=== PATIENT | male | born 1995 | race Caucasian/White ===

== ENCOUNTER 2018-11-23 08:57 | Emergency (ER) | payer BC, SELFPAY ==
[2018-11-23 08:58] VITALS: BP 131/87; PULSE 64; RESP 18; TEMP 36.6; O2SAT 100; BMI 30.8
--- NOTE | 2018-11-23 09:29 | ED.VISSUMM ---
- ER Visit Summary Date of Service: 11/23/18 Chief Complaint: Fatigue History of Present Illness: The patient is a 23 M your prior brain tumor with resection. He has a shunt. He states for 2 days fell and has had fatigue. He denies nausea or vomiting. Today he has had some mild diarrhea. He denies any headaches. No neurological symptoms. Had an episode like this 1 other time where he was placed on antidepressants which he states he did not take faithfully and his symptoms went away. Physical Examination: Well-appearing young male. Vital signs are stable and afebrile. No acute distress. HEENT exam unremarkable. Dry reactive light. No facial droop. Normal speech. Moist mucous membranes. Neck nontender no lymphadenopathy. Lungs clear to auscultation bilaterally. Heart regular rhythm no murmur. Abdomen is soft and no peritoneal signs. Patient is moving all 4 extremities. Neurovascular intact. He has 5 out of 5 x ray technologist strength. Dorsi plantar flexion intact. Back exam normal. Skin unremarkable. Neurologically is awake and alert with no focal motor or sensory deficits. NIH score is 0. Fingertip to nose and heel to chaudhari are both within normal limits. Test Results: CBC is normal. White count of 5. Hemoglobin 15. BMP is normal also. Normal glucose. Electrolytes. And creatinine. Emergency Department Course and Treatment: Patient is complaining of fatigue is a completely normal exam. This may be underlying anxiety or even depression. We will check screening labs to rule out a biologic cause. Treatment Plan: 10:20 AM. Discharged home. Follow-up with a primary care physician. Disposition: discharge Impression: Fatigue of uncertain etiology This note was generated with [employer] dictation software. It may contain incorrect words, spelling, and punctuation that were not noted in review of the chart prior to signing ED Disposition - Plan for ED Patient: Referrals: Care Physician,No Primary [Primary Care Provider] -
--- NOTE | 2018-11-23 09:32 | ED.DCSUM_ITS ---
- ER Visit Summary Date of Service: 11/23/18 Chief Complaint: Fatigue History of Present Illness: The patient is a 23 M your prior brain tumor with resection. He has a shunt. He states for 2 days fell and has had fatigue. He denies nausea or vomiting. Today he has had some mild diarrhea. He denies any headaches. No neurological symptoms. Had an episode like this 1 other time where he was placed on antidepressants which he states he did not take faithfully and his symptoms went away. Physical Examination: Well-appearing young male. Vital signs are stable and afebrile. No acute distress. HEENT exam unremarkable. Dry reactive light. No facial droop. Normal speech. Moist mucous membranes. Neck nontender no lymphadenopathy. Lungs clear to auscultation bilaterally. Heart regular rhythm no murmur. Abdomen is soft and no peritoneal signs. Patient is moving all 4 extremities. Neurovascular intact. He has 5 out of 5 residential caregiver strength. Dorsi plantar flexion intact. Back exam normal. Skin unremarkable. Neurologically is awake and alert with no focal motor or sensory deficits. NIH score is 0. Fingertip to nose and heel to chaudhari are both within normal limits. Test Results: CBC is normal. White count of 5. Hemoglobin 15. BMP is normal also. Normal glucose. Electrolytes. And creatinine. Emergency Department Course and Treatment: Patient is complaining of fatigue is a completely normal exam. This may be underlying anxiety or even depression. We will check screening labs to rule out a biologic cause. Treatment Plan: 10:20 AM. Discharged home. Follow-up with a primary care physician. Disposition: discharge Impression: Fatigue of uncertain etiology This note was generated with [employer] dictation software. It may contain incorrect words, spelling, and punctuation that were not noted in review of the chart prior to signing ED Disposition - Plan for ED Patient: Referrals: Care Physician,No Primary [Primary Care Provider] -
[2018-11-23 09:58] LABS: Absolute Lymphocyte Count 1.11 X10^3/ul (0.83-4.51); Absolute Neutrophil Count 3.5 X10^3/uL (2.0-7.7); Basophil# 0.01 X10^3/uL; Basophil% 0.2 % (0-1); Eosinophil# 0.19 X10^3/uL; Eosinophils% 3.7 % (0-5); Hematocrit 45.2 % (40-54); Hemoglobin 15.5 g/dl (13.0-16.5); Lymphocyte # 1.11 X10^3/ul (4.0); Lymphocyte % 21.5 % (19-41); Mean Corp Hgb Conc 34.3 g/gl (32-36); Mean Corpuscular Hgb 31.3 pg (27.0-32.0); Mean Corpuscular Volume 91.1 fL (80-94); Mean Platelet Vol. 10.2 fl (6.2-12.0); Monocyte# 0.31 X10^3/uL; Neutrophil # 3.53 X10^3/uL (2.7-7.7); Neutrophil % 68.4 % (47-70); POSITIVE COUNT NO; POSITIVE DIFFERENTIAL NO; POSITIVE MORPHOLOGY NO; Platelet Count 197 K/mm3 (150-450); RBC Distribution Width SD 39.6 fl (35.1-43.9); Red Blood Count 4.96 M/mm3 (4.6-6.2); White Blood Count 5.2 K/mm3 (4.4-11.0)
[2018-11-23 10:07] LABS: BUN 11 mg/dL (7-18); BUN/Creat Ratio 12.4 RATIO (10-20); Calcium,Total 8.5 mg/dL (8.5-10.1); Creatinine, Serum 0.88 mg/dL (0.70-1.30); EST Glomerular Filtration Rate 111 mL/min (>60); Est Glom Filt Rate - Afr Amer 135 mL/min (>60); Glucose 95 mg/dL (74-106)
[2018-11-23 10:08] LABS: Anion Gap 5 (5-15); Chloride 109 mmol/L (98-107); Potassium 4.1 mmol/L (3.5-5.1); Sodium Level 141 mmol/L (136-145)
--- NOTE | 2018-11-23 10:21 | ED.DEP ---
ED Disposition - Plan for ED Patient: Disposition: Home or Assisted Living Instructions: ED Weakness [facility] Referrals: Edmond Sewell MD [STAFF PHYSICIAN] - 1 Week if not improving Additional Instructions: Fluids and rest. Review not improved position.
[2018-11-23 10:27] VITALS: BP 130/83; PULSE 57; RESP 16
== END 2018-11-23 10:28 | disposition home or self-care (01) ==
PROVIDERS: Emergency Provider Emergency Medicine
DX: R53.83 Other fatigue (principal); R19.7 Diarrhea, unspecified; Z98.2 Presence of cerebrospinal fluid drainage device
CPT/HCPCS: 80048; 85025; 99283

== ENCOUNTER 2020-01-17 19:29 | Emergency (ER) | payer BC, SELFPAY ==
[2020-01-17 19:32] VITALS: BP 134/92; PULSE 87; PULSE 88; RESP 16; RESP 18; TEMP 36.8; O2SAT 95; O2SAT 96; BMI 32.6
--- NOTE | 2020-01-17 20:01 | US_ITS ---
STUDY: SCROTUM ULTRASOUND REASON FOR EXAM: Male, 24 years old. TESTICLE PAIN LT and gt; RT JUST TODAY NO SWELLING TECHNIQUE: Ultrasound evaluation of the scrotum was performed with color Doppler and static schmitz-scale imaging. COMPARISON: None. FINDINGS: RIGHT TESTICLE INTRATESTICULAR: Right testicle is mildly enlarged. The right testicle measures 5.2 x 3.4 x 2.7 cm. There is a homogenous echotexture. There is normal arterial and normal venous vascularity. There is no demonstrated right testicular mass or cyst. EXTRATESTICULAR: The epididymis is normal in size. The epididymis head measures 1.3 x 1.2 x 0.9 cm. There is normal vascularity of the epididymis. There is no demonstrated epididymal cystic structure. There is no demonstrated hydrocele. There is no demonstrated varicocele. There is no demonstrated extratesticular mass or cyst. LEFT TESTICLE INTRATESTICULAR: There is a normal size of the left testicle. The left testicle measures 5 x 3.4 x 2.3 cm. There is a homogenous echotexture. There is normal arterial and normal venous vascularity. There is no demonstrated left testicular mass or cyst. EXTRATESTICULAR: The epididymis is normal in size. The epididymis head measures 0.9 x 0.8 x 0.6 cm. There is normal vascularity of the epididymis. There is no demonstrated epididymal cystic structure. There is a small hydrocele. There is no demonstrated varicocele. There is no demonstrated extratesticular mass or cyst. US/Testicular with Arterial Flow IMPRESSION: No evidence for testicular mass or torsion. Small left hydrocele Electronically Signed: Alec Hercules MD at 20:52 EDT , Service support ,
[2020-01-17] MEDS: Ibuprofen 600 MG Tablet PO (20:08)
[2020-01-17 20:14] LABS: Bacteria 0 SEEN /hpf (None Seen); Mucous, Urine 0 SEEN /hpf (<or=2+); Squamous Epithelial Cells - UA 0 SEEN /hpf (0-5); White Blood Cells 0 SEEN /hpf (0-5)
[2020-01-17 20:34] LABS: Color, Urine Yellow (Yellow); Glucose, Dipstick Normal (Normal); Ketone-Dipstick Negative (Negative); Leukocyte Esterase-Dipstick Negative /ul (Negative); Nitrite-Dipstick Negative (Negative); Occult Blood-Urine 10 /ul (Negative); Protein-Dipstick Negative (Negative); Specific Gravity, Urine 1.025 (1.002-1.030); Urine Bilirubin Dipstick Negative (Negative); Urine Clarity Clear (Clear); Urine Urobilinogen Normal (Normal)
[2020-01-17 20:48] LABS: Red Blood Cells-Urine 0-5 SEEN /hpf (0-5)
--- NOTE | 2020-01-17 20:51 | ED.DCSUM_ITS ---
History of Present Illness Chief Complaint: Male Pain/Injury Informant: Patient Onset: Today Context: Sudden Onset Timing: Waxes and wanes Narrative: Patient is a 24-year-old male with no significant past medical history presenting with testicular pain. Patient states it started about 2 hours prior to arrival. The right is slightly worse than the left. Patient states he has had it before but is never been this severe. Last time was a couple weeks ago. Patient states he put ice on his genitalia which seemed to help his symptoms. He denies any associated dysuria. He denies any penile discharge. Denies any r alva. He is not concern for sexually transmitted infections and sent a monogamous relationship. He denies any pain with defecation. Past Medical History - Allergies and Home Meds Allergies/Adverse Reactions: Allergies No Known Allergies Allergy (Verified 01/17/20 19:31) Primary Care Physician: Edmond Sewell MD [Primary Care Provider] - Past Medical History: None Surgical History: noncontributory Smoking Status: Never smoker Review of Systems General: Denies: Chills, Fever, Sweats Eyes: Denies: Visual changes - bilaterally, Diplopia ENT: Denies: Rhinorrhea, Sore throat Cardiovascular: Denies: Chest pain, Palpitations Respiratory: Denies: Dyspnea, Cough, Dyspnea on exertion Gastrointestinal: Denies: Abdominal pain, Nausea, Vomiting, Diarrhea, Melena, Hematochezia Genitourinary: Reports: - - Testicular pain. Denies: Dysuria, Hematuria, Frequency Musculoskeletal: Denies: Back pain, Extremity Pain Skin: Denies: Rash, Wounds Neurological: Denies: Headache, Weakness, Numbness Physical Exam Vital Signs/Narrative: Vital Signs Temp Pulse Resp BP Pulse Ox 01/17/20 19:32 98.2 F 87 18 134/92 H 96 Inital Vital Signs reviewed: Yes General: Well nourished, Well developed, No Acute Distress Head: Normocephalic, Atraumatic Eyes: Perrl, EOMI ENT: Moist mucous membranes, No rhinorrhea Neck: Supple, Nontender Cardiovascular: Regular rate, Regular rhythm, No murmurs Respiratory: No distress, CTA bilaterally, Chest nontender Abdomen: Soft, Nontender, Nondistended, Normal bowel sounds. Negative for: Guarding, Rebound tenderness : - - Normal cremasteric reflex bilaterally, normal testicular lie, no specific tenderness to palpation of the testicles, no hernia palpated. Normal penis with no urethral meatus discharge. Back: Nontender, Normal Inspection. Negative for: CVA tenderness Extremities: Nontender, No edema Skin: Normal color, No rash Neurological: Alert, Oriented x3, Cranial nerves II-XII grossly intact, Normal Strength, Normal Sensation Psychological: Normal affect, Normal Mood Diagnostic/Tx/Re-eval Clinical Impression(s) from Imaging Studies Testicular Ultrasound 01/17/20 20:01 IMPRESSION: No evidence for testicular mass or torsion. Small left hydrocele Electronically Signed: Alec Hercules MD at 20:52 EDT , Service support , Laboratory Data 01/17/20 20:05 Urine Color Yellow Urine Clarity Clear Urine pH 6.0 Ur Specific Cameron 1.025 Urine Protein Negative Urine Glucose (UA) Normal Urine Ketones Negative Urine Occult Blood 10 H Urine Nitrite Negative Urine Bilirubin Negative Urine Urobilinogen Normal Ur Leukocyte Esterase Negative Urine RBC 0-5 SEEN Urine WBC 0 SEEN Ur Squamous Epith Cells 0 SEEN Urine Bacteria 0 SEEN Urine Mucus 0 SEEN - Medical Decision Making Patient is evaluated for testicular pain. He appears nontoxic in no acute distress. He not have any associated back pain or other findings concerning for kidney stone. Urinalysis does show 0-5 red blood cells was otherwise negative. No inflammatory changes. Ultrasound does not show any torsion or acute process. He does have a small left hydrocele. I do not think this is associated with his pain. Patient will be referred to urology for follow-up. He is given Motrin for pain control. He is counseled on the risk of an intermittent torsion and that if his pain suddenly returns and is severe he should return to the emergency room for repeat ultrasound. Patient is counseled on signs and symptoms requiring return to the emergency room. Patient verbalizes agreement and understand this plan. Patient discharged home in stable and improved condition. ED Disposition - Plan for ED Patient: Disposition: Home or Assisted Living Diagnosis: Testicular pain, unspecified Instructions: ED Testicular Pain [facility] Prescriptions: Ibuprofen [Motrin] 600 mg PO Q6H PRN PRN #20 tab PRN Reason: Pain/Inflammation Prescription Printed Referrals: Edmond Sewell MD [Primary Care Provider] - Lenny Clayton MD [STAFF PHYSICIAN] -
[2020-01-17 21:45] VITALS: BP 123/71; PULSE 71; RESP 17; O2SAT 95
== END 2020-01-17 21:45 | disposition home or self-care (01) ==
PROVIDERS: Emergency Provider Emergency Medicine; PCP Family Medicine
DX: N50.811 Right testicular pain (principal); N50.812 Left testicular pain; N43.3 Hydrocele, unspecified
CPT/HCPCS: 76870; 81001; 93976; 99283

== ENCOUNTER → 2020-03-13 | Outpatient (CLI) | payer BC, SELFPAY | END | disposition home or self-care (01) | LOC: LABSPEC 17:56 | PROVIDERS: PCP Family Medicine; Visit Provider Family Medicine | DX: Z31.41 Encounter for fertility testing (principal) ==

== ENCOUNTER 2020-03-16 07:11 | Emergency (ER) | payer BC, SELFPAY ==
[2020-03-16 07:11] VITALS: BP 149/109; PULSE 60; RESP 18; TEMP 36.6; O2SAT 98; BMI 33.3
--- NOTE | 2020-03-16 07:22 | CT_ITS ---
STUDY: CT BRAIN WITHOUT CONTRAST REASON FOR EXAM: Male, 24 years old. AMNESIA, HX BRAIN TUMOR, SHUNT RADIATION DOSAGE (If Supplied By Facility): CTDIvol = ( 44.99 ) mGy, DLP = ( 779.24 ) mGycm TECHNIQUE: Transaxial CT imaging of the brain was performed without administration of intravenous contrast material. Individualized dose optimization techniques were used for this CT. COMPARISON: No relevant priors. FINDINGS: A right-sided posterior shunt tube is seen with the tip in the left lateral ventricle. Prior craniotomy in the right occipital bone. Hyperostosis in the right parietal and occipital bones. There is a 2.7 cm x 5.5 cm x 3.9 cm CSF fluid collection in the right cerebellar hemisphere. The patient has a history of prior craniotomy in the surgery. This may represent postoperative changes. There is a mild degree of hydrocephalus for the patient''s age. Normal basal ganglia and thalami. Normal brainstem. Normal cerebellum. There is no intracranial hemorrhage. There are no findings of an acute ischemic infarction. Partial opacification of the ethmoid sinuses bilaterally as well as the right frontal sinus. CT/Brain/Head without Contrast IMPRESSION: The patient is status post craniotomy involving the right occipital bone with the CSF collection in the right cerebellar hemisphere most likely postoperative in nature. A right-sided ventricular shunt tube is seen with the tip in the left lateral ventricle. Hydrocephalus. Electronically Signed: Femi Hardy, at 8:50 EDT , Service support ,
--- NOTE | 2020-03-16 07:23 | ED.VISSUMM ---
- ER Visit Summary Date of Service: 03/16/20 Chief Complaint: [Not feeling well] History of Present Illness: The patient is a 24 M [presents to the emergency department with 3-day history of feeling like he is having an out of body experience. He has had some intermittent blurred vision. Today he states that he drove to work and then once he got to work did not remember driving to work. Patient states he has had similar episodes like this yearly since 2013. Patient had an episode last year and was seen in the ER for that. Today while at work he states that he broke into a cold sweat and was little bit nauseated and hands became numb and tingly. Patient has history of prior brain tumor that was resected when he was a young child and has a [employer] shunt. He is not had any fevers or recent illness. He denies headaches. Patient denies illicit drug use.] Physical Examination: [HEENT-PERRLA, EOMI. Cranial nerves II through XII grossly intact. TMs clear. Mucous membranes moist. No adenopathy. Cardiovascular-regular rate and rhythm without murmur or ectopy Lungs-clear to auscultation, chest wall stable without crepitus or subcu emphysema Abdomen-normoactive bowel sounds, soft, nontender, no rebound or rigidity, no peritoneal signs. Neuro [id number] and heel chaudhari testing within normal limits, negative Romberg, negative for drift, fundi benign Extremities-intact ?4, normal range of motion, normal pulses, atraumatic] Test Results: [CBC with differential was normal. Chemistries unremarkable. CT scan of the brain without contrast showed prior craniotomy with a fluid collection that was felt to be postsurgical and mild degree of hydrocephalus.] Emergency Department Course and Treatment: [] Treatment Plan: [Patient will be given a prescription for Ativan as needed for anxiety. I recommended that he follow-up with his primary care physician within next 3 to 5 days.] Disposition: [Discharged home in stable condition] Impression: [Stress reaction Amnesia] This note was generated with [employer] software. It may contain incorrect words, spelling, and punctuation that were not noted in review of the chart prior to signing ED Disposition - Plan for ED Patient: Referrals: Edmond Sewell MD [Primary Care Provider] -
[2020-03-16 08:08] LABS: Absolute Lymphocyte Count 1.03 X10^3/uL (0.83-4.51); Basophil# 0.02 X10^3/uL; Basophil% 0.5 % (0-1); Eosinophil# 0.12 X10^3/uL; Eosinophils% 2.7 % (0-5); Hematocrit 45.4 % (40-54); Hemoglobin 15.2 g/dL (13.0-16.5); Lymphocyte # 1.03 X10^3/ul (4.0); Lymphocyte % 23.3 % (19-41); Mean Corp Hgb Conc 33.5 g/dL (32-36); Mean Corpuscular Hgb 30.6 pg (27.0-32.0); Mean Corpuscular Volume 91.5 fL (80-94); Mean Platelet Vol. 9.8 fl (6.2-12.0); Monocyte# 0.23 X10^3/uL; Monocyte% 5.2 % (0-10); NRBC Flagged by Analyzer 0 % (0-5); Neutrophil # 3.01 X10^3/uL (2.7-7.7); Neutrophil % 68.1 % (47-70); Platelet Count 209 K/mm3 (150-450); RBC Distribution Width CV 11.9 % (11.6-14.6); RBC Distribution Width SD 39.2 fl (35.1-43.9); Red Blood Count 4.96 M/mm3 (4.6-6.2); White Blood Count 4.4 K/mm3 (4.4-11.0)
[2020-03-16 08:12] VITALS: BMI 33.3
[2020-03-16 08:26] LABS: Anion Gap 7 (5-15); BUN 16 mg/dL (7-18); BUN/Creat Ratio 15.5 RATIO (10-20); Chloride 108 mmol/L (98-107); Creatinine, Serum 1.03 mg/dL (0.70-1.30); EST Glomerular Filtration Rate 92 mL/min (>60); Est Glom Filt Rate - Afr Amer 112 mL/min (>60); Estimated Creatinine Clearance 126.36 ml/min; Glucose 107 mg/dL (74-106); Potassium 4.1 mmol/L (3.5-5.1); Sodium Level 143 mmol/L (136-145)
--- NOTE | 2020-03-16 09:05 | ED.DEP ---
ED Disposition - Plan for ED Patient: Instructions: ED Stress React Prescriptions: Lorazepam [Ativan] 1 mg PO TID PRN #10 tablet PRN Reason: Anxiety Transmission Status: Sent to [id number] Referrals: Edmond Sewell MD [Primary Care Provider] - 3-5 Days
[2020-03-16 09:50] VITALS: PULSE 64; RESP 17; O2SAT 98
== END 2020-03-16 09:51 | disposition home or self-care (01) ==
LOC: ED 07:41
PROVIDERS: Emergency Provider Emergency Medicine; PCP Family Medicine
DX: F43.9 Reaction to severe stress, unspecified (principal); R41.3 Other amnesia; G91.9 Hydrocephalus, unspecified; Z98.2 Presence of cerebrospinal fluid drainage device; Z79.899 Other long term (current) drug therapy
CPT/HCPCS: 70450; 80048; 85025; 99283

== ENCOUNTER → 2020-03-16 | Outpatient (CLI) | payer BC, SELFPAY ==
[2020-03-16 08:12] VITALS: BMI 33.3
== END | disposition home or self-care (01) ==
LOC: LABSPEC 18:14
PROVIDERS: PCP Family Medicine; Visit Provider Family Medicine
DX: Z31.41 Encounter for fertility testing (principal)

== ENCOUNTER → 2020-03-17 15:42 | Outpatient (CLI) | payer BC, SELFPAY ==
[2020-03-16 08:12] VITALS: BMI 33.3
== END ==
PROVIDERS: PCP Family Medicine; Referring Provider Family Medicine; Visit Provider Family Medicine
DX: Z31.41 Encounter for fertility testing (principal)
CPT/HCPCS: 89321

== ENCOUNTER → 2020-05-04 18:32 | Outpatient (CLI) | payer BC, SELFPAY | PROVIDERS: PCP Family Medicine; Referring Provider Family Medicine; Visit Provider Family Medicine | DX: Z20.828 Contact with and (suspected) exposure to other viral communicable diseases (principal) | CPT/HCPCS: 87635; U0003 ==

== ENCOUNTER → 2020-10-02 13:37 | Outpatient (CLI) | payer BC, SELFPAY | PROVIDERS: PCP Family Medicine; Visit Provider Family Medicine | DX: Z20.822 Contact with and (suspected) exposure to COVID-19 (principal) | CPT/HCPCS: 87635; U0005; U0003 ==

== ENCOUNTER → 2021-06-13 | Outpatient (CLI) | payer BC, SELFPAY | END | disposition home or self-care (01) | PROVIDERS: PCP Family Medicine; Referring Provider Family Medicine; Visit Provider Nurse Practitioner Family | DX: U07.1 COVID-19 (principal) | CPT/HCPCS: 87635; U0005; U0003 ==

== ENCOUNTER → 2022-02-08 | Outpatient (CLI) | payer BC, SELFPAY | END | disposition home or self-care (01) | PROVIDERS: PCP Family Medicine; Visit Provider Family Medicine | DX: U07.1 COVID-19 (principal) | CPT/HCPCS: 87635; U0003; U0005 ==